=== PATIENT | female | born 1945 | race Caucasian/White ===

== ENCOUNTER 2020-02-11 07:42 | Inpatient (IN) | payer OTHER, SELFPAY ==
[~2020-02-11] VITALS: Ht 160 cm; Wt 76.2 kg
[~2020-02-11 07:42] MED LIST: CEFAZOLIN SOD 1 GM in D5W 50 ML IV ONE
[2020-02-11] MEDS ORDERED: SEVOFLURANE 15 MIN GAS INH ONE (11:50)
[2020-02-11] MEDS ORDERED: ONDANSETRON HCL 4 MG/2 ML VIAL IVP ONE (11:50)
[2020-02-11] MEDS ORDERED: ISOSULFAN BLUE 5 ML VIAL (LYMPHAZURIN) INJ ONE (11:50)
[2020-02-11] MEDS ORDERED: DEXAMETHASONE SOD PHOSPHATE 4 MG/ML VIAL IVP ONE (11:50)
[2020-02-11] MEDS ORDERED: METOCLOPRAMIDE HCL 10 MG/2 ML VIAL IVP ONE (11:50)
[2020-02-11] MEDS ORDERED: MIDAZOLAM HCL 5 MG/5 ML VIAL IVP ONE (11:50)
[2020-02-11] MEDS ORDERED: BUPIVACAINE /PF 0.25% 30 ML VIAL INJ ONE (11:50)
[2020-02-11] MEDS ORDERED: MEPERIDINE HCL/PF 100 MG/ML AMP IM ONE (11:50)
[2020-02-11] MEDS ORDERED: LR 1,000 ML IV.SOLN IV ONE (11:50)
[2020-02-11] MEDS ORDERED: NS IRRIG SOLN 1000 ML IR ONE (11:50)
[2020-02-11] MEDS ORDERED: SUCCINYLCHOLINE CHLORIDE 20 MG/ML(QUELICIN) IVP ONE (11:50)
[2020-02-11] MEDS ORDERED: PROPOFOL 200MG/ 20ML VIAL (DIPRIVAN) IV ONE (11:50)
[2020-02-11] MEDS ORDERED: ONDANSETRON HCL 4 MG/2 ML VIAL IVP PRN (12:30)
[2020-02-11] MEDS ORDERED: HYDROmorphone 1 MG INJ. 1 MG/ML AMPUL IVP PRN (12:30)
[2020-02-11] MEDS ORDERED: HYDROcodone/ACETAMIN 5-325 MG TAB (NORCO/ VICODIN) PO PRN ×2 (12:30)
[2020-02-11] MEDS ORDERED: ACETAMINOPHEN 325 MG TABLET PO PRN (12:30)
--- NOTE | 2020-02-11 13:15 | NUR ---
ADMISSION NOTE Received patient from OR via audrey, received report from Vance STINSON. Status post lumpectomy on the left breast. Language barrier noted because patient only speaks [place]. Her son is present to help with interpretations. IVF on right hand infusing well. Pain is controlled at this time per patient. Able to tolerate fluids. Patient oriented to hospital routine, call light, toileting and safety. Patient verbalized understanding.
--- NOTE | 2020-02-11 13:22 | NUR ---
CONSULTATION PAGED REASON FOR CONSULTATION:MEDICAL MANAGEMENT BRADYCARDIA WAS CONSULT CALLED?Y PERSON WHO WAS NOTIFIED:[place] CONSULTING PHYSICIAN:KAYLAH LUCIO HR SHARED SERVICES CONSULTANT SPECIALTY:INTERNAL MEDICINE HR SHARED SERVICES CONSULTANT PHONE NUMBER:[phone] REQUESTING PHYSICIAN:RUTHIE DURAN
[2020-02-11 13:46] VITALS: BP_SYST 139
[2020-02-11] MEDS: D5/0.45 NS 1,000 ML IV SCH (14:00)
[2020-02-11] MEDS ORDERED: IBUP-1970 PO (14:08)
[2020-02-11] MEDS ORDERED: ACET-2165 PO (14:08)
[2020-02-11] MEDS ORDERED: CAND16TA25 PO (14:08)
--- NOTE | 2020-02-11 15:45 | NUR ---
ROUNDS Resting in bed. IVF infusing well. Afebrile. Pain is controlled at this time per patient. Tolerated snacks provided. Call light within reach. Will continue to monitor.
[2020-02-11 16:51] VITALS: BP_SYST 136
--- NOTE | 2020-02-11 17:30 | NUR ---
ROUNDS Patient is asleep at this time. IVF infusing well. Safety checks done. Will continue to monitor.
--- NOTE | 2020-02-11 18:53 | NUR ---
CLOSING NOTES Resting in bed. No shortness of breath. Denies any pain. Dressing remains dry and intact. IVF infusing well. Ate most of her dinner. Assisted to the restroom and back to bed, steady gait. All needs met throughout shift. Fall and safety checks done. Call light within reach. Will endorse to night nurse.
--- NOTE | 2020-02-11 19:20 | NUR ---
RECEIVED REPORT FROM DENISE NIX. Pt AAOX4, ICELANDIC SPEAKER. S/P SURG- LUMPECTOMY W/ BIOPSY. @ PRESENT VOICES NO C/O PAIN OR DISCOMFORT. NAD NOTED, PLEASANT DEMEANOR.
[2020-02-11 19:50] VITALS: BP_SYST 132
--- NOTE | 2020-02-11 20:15 | NUR ---
PATIENT STATES SHE HAS A HISTORY OF HTN, HOWEVER, DOES NOT REMEMBER THE BP MED SHE TAKES AT NIGHT. S/W SON VIA HER CELL PHONE (ON SPEAKER), HE DOES NOT REMEMBER THE NAME EITHER, HER BELONGINGS ARE NOT WITH HIM AT HIS HOME, THEREFORE HE IS UNABLE TO GIVE NAME OF THE BP MED.PATIENT VS IS PRESENTLY 132/64, HR IS 71. NAD NOTED. WILL MONITOR BP AND HR FOR CHANGES. PER REPORT PATIENT WAS SB DURING SURG AND POST OP.
--- NOTE | 2020-02-11 20:15 | NUR ---
REVIEW OF ORDERS: [id number] PROFESSOR [employer] ERROR FOR D/C PER DR PRADHAN. Pt DR IS RUTHIE FERNANDES.
[2020-02-11] MEDS: FAMOTIDINE PF 20 MG/2 ML VIAL IVP SCH (20:35)
[2020-02-11] MEDS ORDERED: CEFAZOLIN 1 GM IVPB PREMIX 100 ML IV ONE (21:18)
[2020-02-11] MEDS: CEFAZOLIN 1 GM IVPB PREMIX 50 ML IV SCH ×2 (21:44→21:51)
--- NOTE | 2020-02-11 22:30 | NUR ---
MED PAS DONE. ANCEF 1 GM IVPB 3RD DOSE ADMINISTERED. Pt WATCHING TV, VOICES NO C/O PAIN OR DISCOMFORT STATES 'I FEEL FINE IN [place]'.
[2020-02-12 00:23] VITALS: BP_SYST 114
[2020-02-12] MEDS: D5/0.45 NS 1,000 ML IV SCH ×2 (00:29→11:00)
--- NOTE | 2020-02-12 02:45 | NUR ---
Pt W/ LOW HR IN THE 40'S PER HOOD MAKER. IN ROOM, Pt IN A DEEP SLEEP, NO AROUSAL TO NAME, AROUSAL TO TOUCH. AAOX4, SKIN W/D TO TOUCH, Pt ASKED TO TAKE SLOW DEEP BREATHES, HR INCREASED TO 57 BPM PER HOOD MAKER, PO2 97%. NAD NOTED. PT VERBALIZED NO C/O PAIN, AND NOT COLD.
[2020-02-12 04:00] VITALS: BP_SYST 127
--- NOTE | 2020-02-12 04:40 | NUR ---
ON ROUNDS, Pt ASLEEP W/ EASY AROUSAL. PATIENT HR HAS BEEN FALLING IN THE 40'S ALL MORNING, PER ASSESSMENT, EACH TIME PATIENT WAS IN A DEEP SLEEP, ONCE AWAKENED AND ASKED TO TAKE DEEP BREATHES AND COUGH, HR INCREASED TO 50'S. Pt VOICES NO C/O PAIN. WILL CONT TO MONITOR FOR CHANGES.
--- NOTE | 2020-02-12 07:05 | NUR ---
REPORT TO AM SHANTELL NIX. Pt AAOX4, IN BED, VOICES NO C/O PAIN OR DISCOMFORT AT PRESENT.DISCUSSED HTN MED WITH PATIENT PER PRE-OP MED LIST- PT TAKES ATORVASTATIN 10 MG @ HS (NEEDS A REFILL) AND CANDESARTAN CILEXETIL 16 MG PO @ HS. PASSED ON IN REPORT TO BE RE-ITERATED TO ADMIT PCP.ROOM IS COOL, WHICH IS Pt's PREFERENCE. NAD.
[2020-02-12 08:00] VITALS: BP_SYST 146
--- NOTE | 2020-02-12 08:00 | NUR ---
INITIAL NOTES Resting in bed, alert and oriented. No shortness of breath on room air. Heart rate is at 54bpm. Pain is controlled at this time per patient. Surgical dressing dry and intact. IVF infusing well. Fall and safety checks in place. Call light within reach. Encouraged to call anytime for help. Will continue to monitor.
--- NOTE | 2020-02-12 08:20 | NUR ---
Nutrition Update Brandon Scale 17 noted. 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
[2020-02-12] MEDS: FAMOTIDINE PF 20 MG/2 ML VIAL IVP SCH (08:34)
[2020-02-12] MEDS ORDERED: ENOXAPARIN SODIUM 30 MG/0.3 ML SYRINGE SUBCUT SCH (09:00)
--- NOTE | 2020-02-12 09:00 | NUR ---
ROUNDS Resting in bed. No sign of distress. Pain is controlled per patient. Assisted in walking around the room, gait is steady. Denied any dizziness. Safety checks done. Will continue to monitor.
--- NOTE | 2020-02-12 10:30 | NUR ---
ROUNDS Resting in bed. No sign of distress. Informed family of current plan of care for patient through phone per patient's request. Safety checks done. Will continue to monitor.
[2020-02-12 12:25] VITALS: BP_SYST 119
--- NOTE | 2020-02-12 13:43 | NUR ---
ROUNDS Resting in bed. No sign of distress. IVF infusing well. Safety checks done. Will continue to monitor.
--- NOTE | 2020-02-12 14:46 | NUR ---
Seen walking around the room, no sign of distress. Denies any pain or dizziness. IVf is infusing well. Fall and safety checks in place. Will endorse care to Ms. Aliya STINSON.
--- NOTE | 2020-02-12 14:50 | NUR ---
RECEIVED REPORT FROM SHANTELL MORGAN. PT STABLE. CONTINUE TO MONITOR.
--- NOTE | 2020-02-12 15:50 | NUR ---
Seen and examined by Dr. Esparza with walking dragline oiler SHANTELL Herrmann able to ambulate to hallway with out dizziness HR 87 walking tolerates well.
[2020-02-12 16:33] VITALS: BP_SYST 138
[2020-02-12 17:04] VITALS: BP_SYST 144
--- NOTE | 2020-02-12 17:21 | NUR ---
D/C Patient Patient given medication reconciliation form and D/C instructions. Exit Care provided. Patient verbalized understanding. MD discussed with patient the results and treatment provided. Ambulatory with steady gait for discharge to home. Patient in stable condition, ID band removed. IV catheter removed, intact and dressing applied, no active bleeding. Patient educated on pain management. Spoke to pt's son also, given education on discharge instructions. All belongings sent with patient.
--- NOTE | 2020-02-14 16:03 | NUR ---
Discharge Follow Up Phone Call Phoned the number listed for patient, , and spoke with her granddaughter, who translated for patient. Patient is doing fine. She has a follow up appointment with Dr Borja, surgeon, on 02/19/20. They asked about a follow up appointment with a kiln remover. RAIL OPERATIONS CONTROLLER explained that patient saw kiln remover, Dr Esparza, while in the hospital and the recommendation from the consult was for patient to follow up with her PCP. Patient also has capitated insurance ([employer]). Recommended they phone PCP, make a follow up appointment and bring in all discharge paperwork and discuss cardiac follow up. No other questions or concerns.
== END 2020-02-12 17:15 | disposition home or self-care (01) | DRG 581 ==
LOC: SMU 07:42 → SDS 07:42 → EDSTATUS 09:00 → STU 12:40 → SMU 12:44 → SDS 12:44 → STU 12:54
PROVIDERS: ADMIT Colon & Rectal Surgery; ATTEND Colon & Rectal Surgery
PROC: 0HBU0ZZ Excision of Left Breast, Open Approach (ICD-10-PCS; 2020-02-11)
PROC: 4A1605H Monitoring of Lymphatic Flow using Indocyanine Green Dye, Open Approach (ICD-10-PCS; 2020-02-11)
PROC: 07B60ZX Excision of Left Axillary Lymphatic, Open Approach, Diagnostic (ICD-10-PCS; principal; 2020-02-11 11:45)
DX: C50.912 Malignant neoplasm of unspecified site of left female breast (principal); I10 Essential (primary) hypertension; M19.90 Unspecified osteoarthritis, unspecified site; E78.5 Hyperlipidemia, unspecified; R00.1 Bradycardia, unspecified; K21.9 Gastro-esophageal reflux disease without esophagitis
CPT/HCPCS: 78195; 88305; 88307; 88342; 93005; A9541; G0378; J0330; J0690; J1100; J1650; J2175; J2250; J2405; J2704; J2765; J3490; J7060; J7120; Q9968